=== PATIENT | female | born 2000 | race Hispanic/Latino ===

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

== ENCOUNTER 2023-10-18 01:56 | Emergency (ER) | payer MEDICAID, OTHER ==
[~2023-10-18] VITALS: Ht 160 cm; Wt 81.6 kg
[2023-10-18] MEDS: PHENAZOPYRIDINE HCL 200 MG TABLET PO ONE (02:11)
[2023-10-18] MEDS: HYDROCODONE/ACETAMINOPHEN 5/325 MG TAB PO ONE (02:12)
[2023-10-18 02:14] LABS: APPEARANCE,URINE CLOUDY (CLEAR); BILIRUBIN,URINE NEGATIVE (NEGATIVE); COLOR,URINE LIGHT-YELLOW (YELLOW); GLUCOSE, URINE (UA) NEGATIVE (NEGATIVE); KETONES,URINE NEGATIVE (NEGATIVE); LEUKOCYTE ESTERASE ,URINE 500 Leu/uL (NEGATIVE); NITRATE,URINE NEGATIVE (NEGATIVE); OCCULT BLOOD,URINE MODERATE (NEGATIVE); PROTEIN,URINE 30 mg/dL (NEGATIVE); UROBILINOGEN,URINE 0.2 mg/dL (0.2-1.0)
[2023-10-18 02:16] LABS: ADD UA MICROSCOPIC YES; HCG,QUALITATIVE URINE NEGATIVE (NEGATIVE)
[2023-10-18] MEDS: CEPHALEXIN 500 MG CAPSULE PO ONE (02:24)
[2023-10-18 02:44] LABS: BACTERIA,URINE MANY /HPF (None Seen); MUCUS,URINE RARE LPF (None Seen); RBC,URINE 26-50 /HPF (0-1); UNCLASSIFIED CRYSTAL 10 /HPF (None Seen); WBC CLUMP FEW /HPF (0-1); WBC,URINE TNTC /HPF (0-1)
[2023-10-18] MEDS ORDERED: PHEN-847 PO (03:30)
[2023-10-18] MEDS ORDERED: CEPH500T PO (03:30)
[2023-10-18 03:40] VITALS: BP 121/74; PULSE 71; RESP 16
== END 2023-10-18 03:51 | disposition home or self-care (01) ==
LOC: EDH 01:56
DX: N39.0 Urinary tract infection, site not specified (principal)
CPT/HCPCS: 81001; 81025; 87088